=== PATIENT | female | born 1990 ===

== ENCOUNTER 2022-02-23 13:00 | Day surgery (SDC) | payer OTHER ==
[~2022-02-23] VITALS: Ht 160 cm; Wt 71.2 kg
[~2022-02-23 13:00] MED LIST: ALLEGRA ALLERGY60 MG PO
== END 2022-02-23 22:40 | disposition home or self-care (01) ==
LOC: CIR.AMB 13:00
PROVIDERS: ATTEND Obstetrics & Gynecology Obstetrics
DX: N72 Inflammatory disease of cervix uteri (principal)